=== PATIENT | female | born 1970 | race Caucasian/White ===

== ENCOUNTER 2019-08-25 20:42 | Outpatient (CLI) | payer OTHER | END 2019-08-25 23:59 | disposition home or self-care (01) | LOC: D.MAMMO 20:42 | PROVIDERS: ATTEND Nurse Practitioner Women's Health | DX: Z12.31 Encounter for screening mammogram for malignant neoplasm of breast (principal) ==

== ENCOUNTER 2019-09-25 09:00 | Outpatient (CLI) | payer OTHER | END 2019-09-25 10:00 | disposition home or self-care (01) | LOC: D.MAMMO 09:00 | PROVIDERS: ATTEND Nurse Practitioner Women's Health | DX: R92.8 Other abnormal and inconclusive findings on diagnostic imaging of breast (principal) ==